=== PATIENT | female | born 1950 | race Caucasian/White ===

== ENCOUNTER → 2017-03-28 | Day surgery (SDC) | payer OTHER ==
[~2017-03-28] MED LIST: ALPRAZOLAM PO; B COMPLEX1 EACH PO; CELEXA20 M1 PO; FERRO-TIME325 MG PO; HYDROCODONE/APA1 T16 PO; LIPITOR PO; OMEPRAZOLE40 M1 PO; PRAVASTATIN SOD40 MG PO; PRISTIQ; SYNTHROID PO; VICODIN ES 7.51 EAC1 PO; VITAMIN D350000 UNIT PO; XANAX0.5 M1 PO
--- NOTE | ~2017-03-28 | EKG ---
PATIENT: ALESIA RESTREPO UNIT #: [id number] Ventricular Rate: 67 BPM Atrial Rate: 67 BPM P-R Interval: 122 ms QRS Duration: 70 ms Q-T Interval: 438 ms QTC Calculation(Bezet): 462 ms P Deale: 26 degrees Calculated R Deale: -9 degrees Calculated T Deale: 9 degrees Diagnosis Line: Normal sinus rhythm Diagnosis Line: Minimal voltage criteria for LVH, may be normal Diagnosis Line: variant Diagnosis Line: Otherwise normal ECG Diagnosis Line: No previous ECGs available Diagnosis Line: Confirmed by NITHIN PANCHAL MD ([id number]) on 03/28/2017 Diagnosis Line: 10:05:12 AM INTERPRETING MD: ANSLEY MANNING
--- NOTE | ~2017-03-28 | OR ---
Unit #: [id number] #: [id number] Patient: ALESIA RESTREPO [id number] [address] [place], [place] [address] [id number] MR#: [id number] NAME: ALESIA RESTREPO ROOM: Date of Procedure: 03/28/2017 Admission Date: 03/28/2017 Surgeon: Abraham Dallas Jr., M.D. : 1950 Attending Physician: Abraham Dallas Jr., M.D. Referring Physician: Abraham Dallas Jr., M.D. Primary Care Physician: Cecilio Gaines M.D. OPERATIVE REPORT INDICATIONS FOR PROCEDURE The patient is a 66-year-old white female, who recently has been having problems with intermittent rectal bleeding felt to be related to her dilated internal hemorrhoids as well as some external hemorrhoids. She is brought in this time for hemorrhoidal stapling with mucosectomy and probable external hemorrhoidectomy. The patient understands the procedure including the risks, including that of anal stenosis, fecal incontinence, infection, poor healing, chronic pain, and recurrence of her hemorrhoids and consents. PREOPERATIVE DIAGNOSIS Chronic bleeding internal hemorrhoids with irritated external hemorrhoids. POSTOPERATIVE DIAGNOSES Chronic bleeding internal hemorrhoids with irritated external hemorrhoids, noting large dilated internal hemorrhoids with 2 external hemorrhoids that were dilated. ANESTHESIA General with endotracheal intubation and 0.5% Marcaine with epinephrine locally. PROCEDURE PERFORMED Hemorrhoidal stapling with mucosectomy followed by external hemorrhoidectomy x2. DESCRIPTION OF PROCEDURE The patient was positioned in supine position. After being anesthetized and intubated, she was placed in prone position, prepped and draped in routine fashion in a daphne-knife position for hemorrhoidal stapling. Perianal block was performed with 0.5% Marcaine with epinephrine locally and a 4 finger dilatation was performed very slowly with the anal retractor then being placed and sutured in place with 2-0 silk sutures. The internal retractor was then placed and 0 Prolene pursestring was placed in routine fashion with an additional stitch being placed at the 6 o'clock position. The stapler was then placed and the pursestring tied around. The stem of the stapler was closed, fired, and removed with an excellent portion of tissue being taken. Staple line had 2 separate small areas of bleeding, which were controlled with interrupted 4-0 Vicryl [id number] sutures. After this was complete and total hemostasis was noted, the retracting device was removed and after observing the area for Unit #: [id number] #: [id number] Patient: ALESIA RESTREPO 5 minutes with no evidence of any further bleeding, the 2 external hemorrhoids were removed in routine fashion. A 2-0 chromic stitch was placed up within the anal canal at the inside portion of the external hemorrhoid and [place] clamp was used to crush the base of the hemorrhoid externally. It was then excised and the crushed area then sutured with continuous locking 2-[address]. This was done in 2 separate areas, one at the 9 o'clock position, the other at the 6 o'clock position. After this was complete, there was no evidence of any bleeding from the external hemorrhoidal resections. The anal canal showed no evidence of any narrowing. It was then packed with Gelfoam soaked with viscous Xylocaine and sterile dressings were applied externally. Estimated blood loss less than 30 mL. The patient received less than 1000 mL crystalloid solution during the procedure. Sponges and instruments counts were correct x3. No drains used. No complications. The patient was taken to the recovery room with stable vital signs in satisfactory condition. Dictated by... Abraham Dallas Jr. MTimi HOWELL/andrew TD: 03/28/2017 22:36 JOB #: [id number] OPERATIVE REPORT Page 1 of 1 X Abraham Dallas MD X PROCEDURE OPERATIVE NOTE
[2017-03-28 06:11] LABS: HEMATOCRIT 37.9 % (35.0-45.0); HEMOGLOBIN 12.2 gm/dL (12.0-16.0); MEAN CELL VOLUME 92.3 FL (83-96); MEAN CORPUSCULAR HEMOGLOBIN 29.7 PG (28-34); MEAN CORPUSCULAR HGB CONC 32.2 g/dL (30-36); MEAN PLATELET VOLUME 7.8 FL (6.5-11.5); RED BLOOD COUNT 4.11 X10e (3.90-5.30); RED CELL DISTRIBUTION WIDTH 13.2 % (11.0-15.5); WHITE BLOOD COUNT 4.5 X10e3 (4.0-10.5)
[2017-03-28 06:52] LABS: BUN/CREATININE RATIO 17.5; CALCIUM SERUM 8.9 mg/dL (8.4-10.2); CREATININE SERUM 0.8 mg/dL (0.6-1.4); GLOM FILT RATE Estimated 76.4 mL/min (>60); POTASSIUM 3.7 mmol/L (3.5-5.1)
== END | disposition home or self-care (01) ==
LOC: CSUR 05:23
PROVIDERS: Surgery
DX: K64.8 Other hemorrhoids (principal); K64.4 Residual hemorrhoidal skin tags; D64.9 Anemia, unspecified; E03.9 Hypothyroidism, unspecified; K21.9 Gastro-esophageal reflux disease without esophagitis; G89.29 Other chronic pain; F41.1 Generalized anxiety disorder; E78.00 Pure hypercholesterolemia, unspecified; E78.5 Hyperlipidemia, unspecified; G47.00 Insomnia, unspecified; M19.90 Unspecified osteoarthritis, unspecified site; Z87.891 Personal history of nicotine dependence; Z80.0 Family history of malignant neoplasm of digestive organs; Z79.891 Long term (current) use of opiate analgesic; Z79.899 Other long term (current) drug therapy
CPT/HCPCS: 80048; 85027; 88304; 93005; J0330; J1885; J2250; J2405; J2710; J3010

== ENCOUNTER → 2017-07-23 | Outpatient (CLI) | payer OTHER | END | disposition home or self-care (01) | LOC: CLAB 12:14 | DX: R19.7 Diarrhea, unspecified (principal) | CPT/HCPCS: 87045; 87177; 87209; 87427; 87493; 87899 ==